=== PATIENT | female | born 1995 | race Hispanic/Latino ===

== ENCOUNTER 2021-08-07 11:20 | Emergency (ER) | payer SELFPAY ==
[~2021-08-07] VITALS: Ht 170.2 cm; Wt 117.3 kg
[2021-08-07] MEDS ORDERED: IBUPROFEN200 MG PO (11:42)
[2021-08-07] MEDS ORDERED: CEFDINIR300 MG PO (11:42)
== END 2021-08-07 11:53 | disposition home or self-care (01) ==
LOC: FSED 11:24
DX: J02.0 Streptococcal pharyngitis (principal)
CPT/HCPCS: 83518; 99283